=== PATIENT | male | born 1970 | race Caucasian/White ===

== ENCOUNTER 2016-11-01 06:16 | Day surgery (SDC) | payer BC ==
[2016-10-29 09:51] VITALS: BMI 29.3
[2016-11-01] VITALS (11 sets, daily range): BP systolic 122–147; BP diastolic 80–100; PULSE 76–91; RESP 8–20; Ht 177.8 cm; Wt 89.5 kg
[~2016-11-01] VITALS: Ht 177.8 cm; Wt 89.5 kg
[2016-11-01] MEDS ORDERED: FENTAnyl 50 MCG/ML VIAL ONE (06:36)
[2016-11-01] MEDS ORDERED: GLYCOPYRROLATE 0.4 MG INJ ONE (06:36)
[2016-11-01] MEDS ORDERED: ONDANSETRON 4 MG INJ ONE ×2 (06:36→10:51)
[2016-11-01] MEDS ORDERED: PROPOFOL 20 ML ONE (06:36)
[2016-11-01] MEDS ORDERED: MIDAZOLAM 1 MG/ML 2 ML INJ ONE (06:36)
[2016-11-01] MEDS ORDERED: NEOSTIGMINE 3 MG/3 ML SYRINGE ONE (06:36)
[2016-11-01] MEDS ORDERED: DEXAMETHASONE 4 MG/ML 1 ML INJ ONE (06:36)
[2016-11-01] MEDS ORDERED: ROCURONIUM 50 MG INJ ONE (06:36)
[2016-11-01] MEDS ORDERED: LIDOCAINE 2% (SDV) 5 ML INJ ONE (06:36)
[2016-11-01] MEDS ORDERED: SUGAMMADEX SODIUM 200 MG/2 ML VIAL IV ONE (06:37)
[2016-11-01] MEDS ORDERED: SUCCINYLCHOLINE CHLORIDE 100 MG/5 ML SYG IV ONE (06:41)
[2016-11-01] MEDS ORDERED: FLUMAZENIL 0.5 MG INJ ONE (07:00)
[2016-11-01] MEDS ORDERED: ATROPINE 1 MG/10 ML SYRINGE IV PRN (07:00)
[2016-11-01] MEDS ORDERED: EPHEDrine SULFATE 50 MG/5 ML SYG IV PRN (07:00)
[2016-11-01] MEDS ORDERED: FENTAnyl 50 MCG/ML VIAL IV PRN ×2 (07:00)
[2016-11-01] MEDS ORDERED: MIDAZOLAM 1 MG/ML 2 ML INJ IV PRN (07:00)
[2016-11-01] MEDS ORDERED: HYDROmorphONE (0.2 MG/ML) 10ML SYG IV PRN ×3 (07:00)
[2016-11-01] MEDS ORDERED: ONDANSETRON 4 MG INJ IV PRN (07:00)
[2016-11-01] MEDS ORDERED: hydrALAzine 20 MG INJ IV PRN (07:00)
[2016-11-01] MEDS ORDERED: DIPHENHYDRAMINE 50 MG INJ IV PRN (07:00)
[2016-11-01] MEDS ORDERED: MEPERIDINE 25 MG INJ IV PRN (07:00)
[2016-11-01] MEDS ORDERED: morphine (1 MG/ML) 10ML SYRINGE IV PRN ×3 (07:00)
[2016-11-01] MEDS ORDERED: OXYCODONE/ACETAMINOPHEN (5/325) TAB PO PRN ×2 (07:00)
[2016-11-01] MEDS ORDERED: LABETALOL HCL 20MG INJ IV PRN (07:00)
--- NOTE | 2016-11-01 07:59 | HPN ---
Date/Time of Note Date/Time of Note DATE: 11/01/16 TIME: 07:59 Interval H&P Admission Note Pt. seen H&P reviewed: No system changes JIM PACKER MD Nov 01, 2016 07:59
--- NOTE | 2016-11-01 08:04 | OPR ---
Operative Report Planned Procedure Procedure date Nov 01, 2016 Procedure(s) right jeanette did jj fusion fds fring to jeanette transfer Performed by: JIM PACKER MD Pre-procedure diagnosis same Procedure Description Under satisfactory [] anesthesia, the patient was prepped and draped and placed in a supine position, tilted to the left. Pfannenstiel incision was made, carried through the subcutaneous tissue. Bleeders brought under control with electrocautery. Fascia incised to the length of the incision. Rectus muscles from the fascia, divided midline. Peritoneum exposed, entered through a transverse incision. Exploration of abdomen revealed gravid uterus. Bladder flap was developed. Transverse incision was made in the lower segment of the uterus. Amniotic sac ruptured. [] amniotic fluid noted. [] Nasal oropharyngeal suction was performed. The baby was handed to the team for immediate attention. The placenta was delivered manually intact. Uterine cavity was cleaned with wet sponge and drainage established. Uterus closed in 2 layers using [] in continuous fashion. Peritoneal cavity irrigated with warm saline. Sponge, needle and instrument count reported to be correct. Abdominal peritoneum closed with [] continuously. Rectus muscle approximated with []. Fascia closed with [], and skin closed with monica. Estimated blood loss []mL. Urine bag contained []mL of urine Post-Procedure Post-procedure diagnosis old lac flexdor tendon dip jt distroyed Findings: same Complications: None Pt Condition post procedure: stable Post-procedure comments [facility] out [facility] Physician Certification I, the undersigned physician, hereby certify that I have discussed the procedure described in this consent form with this patient (or the patient's legal cash applications representative), including: * The risk and benefits of the procedure; * Any adverse reactions that may reasonably be expected to occur; * Any alternative efficacious methods of treatment which may be medically viable ; * The potential problems that may occur during recuperation; * Potential for blood transfusion and associated risks/benefits; and * Any research or economic interest I may have regarding this treatment. I further certify that the patient/legally responsible person was encouraged to ask question and that all questions were answered. JIM PACKER MD Nov 01, 2016 08:04
[2016-11-01] MEDS ORDERED: LIDOCAINE 1% (MPF) 30 ML INJ ONE (08:27)
[2016-11-01] MEDS ORDERED: BUPIVACAINE 0.5% (SDV) 30 ML INJ ONE (08:27)
[2016-11-01] MEDS ORDERED: MEPERIDINE 25 MG INJ ONE (10:51)
--- NOTE | 2016-11-01 12:03 | SIPON ---
Date/Time of Note Date/Time of Note DATE: 11/01/16 TIME: 12:02 Operative Report Preoperative Diagnosis prior saw injury, dip jt distroyed flexor tendon lac Postoperative Diagnosis same Operation/Procedure Performed dip jt fusion tendon transfer Surgeon: JIM PACKER MD Anesthesia Type: general Estimated Blood Loss: minimal Specimen: none Grafts/Implants: none Complications: no JIM PACKER MD Nov 01, 2016 12:03
--- NOTE | 2016-11-01 17:09 | OPR ---
DATE OF OPERATION: 11/01/2016 SURGEON: Geovany Hoyt MD. LOCOMOTIVE ENGINEER ELECTRIC: Staff. ANESTHESIOLOGIST: . ANESTHESIA TECHNIQUE: General anesthesia by the anesthesiologist. Local anesthetic by the surgeon. PREOPERATIVE DIAGNOSES: 1. Status post saw injury, volar aspect, right hand, little finger. 2. Destruction, status post destruction distal intraphalangeal joint (DIP), right hand, little finger. 3. Status post laceration extension due to torn profundus and superficialis, right hand, little finger. 4. Angulatory deformity distal intraphalangeal (DIP), right hand, little finger. POSTOPERATIVE DIAGNOSES: 1. Status post saw injury, volar aspect, right hand, little finger. 2. Destruction, status post destruction distal intraphalangeal joint (DIP), right hand, little finger. 3. Status post laceration extension due to torn profundus and superficialis, right hand, little finger. 4. Angulatory deformity distal intraphalangeal (DIP), right hand, little finger. PROCEDURES PERFORMED: 1. DIP joint correction of deformity. 2. DIP joint arthrodesis. 3. Expiration digital nerve radial side, right hand, little finger. 4. Reconstruction flexor tendon function, right hand, little finger using a superficialis transfer from adjacent ring finger. SURGICAL PAUSE: I examined the patient in the preop holding area. Identified the patient, procedure, and plan with the patient awake. Fransisco in the various surgical incisions and showed them to the patient. Again, confirming our procedure and plan, the patient awake. INFORMED CONSENT: At the time I scheduled the operative procedure with the patient in the office. We discussed with the patient risks and hazards of surgery. I mentioned operative mortality, wound infection, good results, bad results, and potential complications. I make the point that the risks of surgery is craft, it is an art form, it is not a science. Every case is a smidgen different. Every result somewhat different. I promised to go to [facility], I don't necessary promise a home run. OPERATIVE PROCEDURE: The patient to surgery, anesthetized as above, sterile prep and drape performed. Part 1, we made a dorsal incision at the level of the DIP joint, right hand, little finger. We exposed the previously saw injured DIP joint, exposed the respective ends either side of the joint, which had no normal anatomy. Decorticated either side. Little bits of bone grafts were packed on the undersurface between the volar plate and the bony surfaces. I introduced a K wire from the distal phalanx surface off the tip and another drill hole in the middle phalanx and then reduced the joint, lined it up on AP and lateral and advanced the wire. Took x-rays intraoperatively and confirmed the position of the wire and readjusted it. When I had a good position own the shaft on 2 views we accepted it. At the tip we introduced a small drill bit and made an entry area into the tip of the distal phalanx over the wire. Over the guidewire reintroduced an Osteomed 2-0 head cannulated screw and advanced it until it was buried well into the distal phalanx and across the DIP joint well into the middle phalanx. This compressed the joint and compressed the fusion. On x-ray you can see it is down the shaft on 2 views. The wound was irrigated and closed with interrupted Vicryl rapid suture. We turned our attention to the volar side of the finger, we explored the prior laceration, explored the digital nerve radial side and it was intact. Identified the flexor tendon sheath, it was pretty much destroyed and there was no tendon at this level. Exposed the tendons to the finger and the palm. Excised the superficialis. His profundus was well scarred to the finger and when you pulled on it the PIP joint moved. I took advantage of that. Through another incision we harvested the superficialis of the ring finger and advanced it to a third incision in the palm. We the advanced the flexor tendon sheath into the palmar wound of the little finger and there we tendon weaved it into the stump of the profundus tendon in good tension. The resting posture of the little finger is now approached normal . The wounds are closed in layers of Vicryl rapid throughout. I put a suture into the nail of the little finger. Put a bulky dressing and splint on. Put the suture in the nail into a rubber band, the rubber band to a safety pin in flexion so that we can start the patient on early dynamic extension, passive flexion exercises to protect the anastomosis from scarring down in the palm, right hand, little finger. . Bulky splint and dressing was applied. The tourniquet was deflated at about 93 minutes, 1.5 hours. ESTIMATED BLOOD LOSS: Minimal. DISCHARGE MEDICATIONS: Hydrocodone wit acetaminophen and Keflex. FOLLOWUP: Will be in our office in week. DISCHARGE INSTRUCTIONS: We will have him do active extension and passive flexion exercises early on and we will protect for about 5 weeks. Dictated By: Geovany Hoyt MD /sheela/meaghan /Document#: [id number] MTDD
--- NOTE | 2016-11-01 17:49 | RADRPT ---
PROCEDURE: Intraoperative imaging of the right fifth finger with fluoroscopy. CLINICAL INDICATION: Right fifth finger pain. Intraoperative. TECHNIQUE: 16 images of the right fifth finger were obtained in the operating room with an image i ntensifier. No radiologist was in attendance. Fluoroscopy time is 23 seconds. COMPARISON: No prior study is available for comparison. FINDINGS: Images demonstrate fusion of the right fifth distal interphalangeal joint with a single cannulated s crew. IMPRESSION: 1. Intraoperative imaging of the right fifth finger. RPTAT: QQ .Spencer Ayala MD, MD Date Time Electronically viewed and signed by .Spencer Ayala MD, on 11/01/2016 17:49 .R/
== END 2016-11-01 12:48 | disposition home or self-care (01) ==
LOC: SDS 06:16
PROVIDERS: ATTEND Orthopaedic Surgery Hand Surgery
DX: S66.126D Laceration of flexor muscle, fascia and tendon of right little finger at wrist and hand level, subsequent encounter (principal); X58.XXXD Exposure to other specified factors, subsequent encounter; Y92.89 Other specified places as the place of occurrence of the external cause; M20.091 Other deformity of right finger(s); I10 Essential (primary) hypertension
CPT/HCPCS: 26497; 26860; 73140; J1100; J2175; J2250; J2405; J3010; Z7512; Z7610; J2710; J7999